=== PATIENT | male | born 1975 | race Caucasian/White ===

== ENCOUNTER 2019-06-15 23:46 | Observation (INO) ==
--- OUTSIDE RECORDS SUMMARY | 2019-06-15 23:49 | External Medical Summary | Continuity of Care Document ---
:1975 Author Name Leonarda Fernandez, Provider Address Unavailable Unavailable , Care Team Providers Name Role Phone Lyndsey Kam PA-C Unavailable [email or web address], Nursing Station [email or web address] CASIE RASHEED Unavailable Unavailable Unavailable Unavailable Unavailable Problems Hemorrhoids, internal (455.0) (K64.8) Bloody stools (578.1) (K92.1) Lower abdominal pain (789.09) (R10.30) Change in bowel habits (787.99) (R19.4) Diarrhea (787.91) (R19.7) Ringworm (110.9) (B35.9) Acid indigestion (536.8) (K30) Sinus congestion (478.19) (R09.81) Chills (780.64) (R68.83) Nausea and vomiting (787.01) (R11.2) Allergies and Adverse Reactions No Known Drug Allergies (Allergy) Medications Lotrimin 1 % CREA Refills: 0 Flonase 50 MCG/ACT SUSP Refills: 0 Suprep Bowel Prep Kit 17.5-3.13-1.6 GM/1 77ML Oral Solution; DILUTE CONTENTS AND USE DIRECTED FOR BOWEL PREP DUNG Kam Start: 26-Oct-2015 Quantity: 1 177 ML Bottle (2 Bot tles) Refills: 0 Procedures History of Appendectomy Status: Complete d History of Shoulder Surgery Status: Comp leted Immunizations Immunizations not documented Family History uncle Family history of colon cancer (V16.0) (Z80.0) Status: Activ e cousin Family history of colon cancer (V16.0) (Z80.0) Status: Activ e Social History - Smoking Status Smoker. current status unknown Plan of Treatment Planned Observations Planned Goals not documented Results No Known Results Results not documented Encounters Appointment; Med ME5, Nursing Station 21-Aug-2018 11:05 Encounter Diagnosis: Problem not documented
[2019-06-16] MEDS ORDERED: NITROGLYCERIN 2% OINTMENT 30GM TUBE EXT STA (00:03)
[2019-06-16] MEDS ORDERED: ASPIRIN CHEW 324 MG PO STA (00:03)
[2019-06-16] MEDS ORDERED: MoRPHine SULFATE 4 MG/ML 1 ML CARP\\VIAL IV STA ×2 (00:03→01:43)
--- NOTE | 2019-06-16 00:11 | Emergency Department Note ---
History of Present Illness General Chief complaint: Cardiac Assessment Stated complaint: HIGH BLOOD PRESSURE Time Seen by Provider: 06/15/19 23:55 History of Present Illness Maximum Pain Intensity: 7 This is a 43-year-old male that presents to the emergency department via private vehicle with complaints of "high blood pressure". The patient notes a history of hypertension, and has had difficulty managing this over the past few days. He notes that his blood pressures been elevated since , and tonight he took 2 tablets of metoprolol noting that this was increased recently. He states that around 7 PM he began with some difficulty with breathing, left arm numbness/tingling and pain in the armpit as well as a headache. His vision was intimately blurry and he felt lightheaded. He felt that his blood pressure was quite elevated. He denies any fevers, chills, recent illness, history of meningitis. He denies any history of GA or PE. He rates the overall discomfort currently as a 7/10. Home Medications Home Medications Medication Instructions Recorded Confirmed Type celecoxib 200 mg PO QPM PRN 06/16/19 06/16/19 History gabapentin 100 mg PO TID 06/16/19 06/16/19 History hydrocodone-acetaminophen 1 tab PO TID PRN 06/16/19 06/16/19 History lorazepam 0.5 mg PO HS PRN 06/16/19 06/16/19 History metoprolol succinate 75 mg PO HS 06/16/19 06/16/19 History sertraline 100 mg PO DAILY 06/16/19 06/16/19 History sumatriptan succinate 50 mg PO UD PRN 06/16/19 06/16/19 History trazodone 50 mg PO HS 06/16/19 06/16/19 History Allergies Allergy/AdvReac Type Severity Reaction Status Date / Time No Known Allergies Allergy Unknown Verified 06/16/19 00:06 Past Med/Surg History Medical History Hypertension Surgical History History of appendectomy History of repair of rotator cuff left Social History Beliefs That Will Affect Care: None Current Living Situation: Spouse and Family Feels Safe at Home: Yes Safety Concerns: Feels Safe At This Time Smoking Status: Current every day smoker Tobacco Type: e-cigarettes ; Do You Dip or Chew Tobacco: No ; Second Hand Exposure: Yes ; Tobacco Cessation Ed ucation Requested by Patient: No Hx Alcohol Use: Yes Alcohol type: hard liquor Hx Substance Use: No Review of Systems A total of 10 systems reviewed and were otherwise negative Physical Exam Vital Signs Vital Signs - 24 hr 06/15/19 23:48 06/16/19 00:00 06/16/19 00:03 Temperature 36.6 C Temperature Source Oral Sepsis Recent Fever Within 48 Hours No Sepsis Action Taken by Nursing No Action Required Pulse Rate 84 Pulse Rate from SpO2 Sensor Respiratory Rate 20 Respiratory Effort / Characteristics Non-Labored Short of Breath Respiratory Depth Normal Normal Blood Pressure 159/100 H Blood Pressure Mean 119 Blood Pressure Position Sitting Pulse Oximetry 96 98 Oxygen Delivery Method Room Air Room Air Room Air Oxygen Flow Rate 06/16/19 00:19 06/16/19 00:45 06/16/19 01:39 Temperature Temperature Source Sepsis Recent Fever Within 48 Hours Sepsis Action Taken by Nursing Pulse Rate 71 68 Pulse Rate from SpO2 Sensor 71 Respiratory Rate 17 20 Respiratory Effort / Characteristics Respiratory Depth Blood Pressure 153/106 H 148/98 H Blood Pressure Mean 121 114 Blood Pressure Position Pulse Oximetry 98 Oxygen Delivery Method Room Air Room Air Oxygen Flow Rate 97 06/16/19 02:00 06/16/19 02:30 Temperature Temperature Source Sepsis Recent Fever Within 48 Hours Sepsis Action Taken by Nursing Pulse Rate 71 68 Pulse Rate from SpO2 Sensor Respiratory Rate 16 16 Respiratory Effort / Characteristics Respiratory Depth Blood Pressure 146/88 H 147/91 H Blood Pressure Mean 107 109 Blood Pressure Position Pulse Oximetry Oxygen Delivery Method Oxygen Flow Rate VITAL SIGNS - Vital signs and nursing notes were reviewed. Stable and afebrile. GENERAL -43-year-old male appearing his stated age who is in no acute distress but appears to be in pain. Communicates well with provider and answers questions appropriately. SKIN - Without rashes. HEAD - NC/AT. EYES - PERRL with EOMI bilaterally. Sclera anicteric. EARS - No deformities of external structures noted on gross examination bilaterally. No pain elicited with palpation of the tragus bilaterally.Tympanic membranes pearly syed without retraction or bulging. No fluid or purulent material visualized behind the TM. Handle of malleus, umbo, cone of light, pars tensa/flaccid all easily visualized. NOSE - Midline and without cyanosis. No epistaxis or purulent drainage noted. Septum midline without deviation or septal hematoma noted. MOUTH/OROPHARYNX - Without perioral cyanosis. Buccal mucosa pink and moist and without leukoplakia. Tongue midline with equal elevation of palate bilaterally. No tonsillar hypertrophy, erythema, or exudates noted. GOod dentition noted. NECK - Neck with FROM. Supple to palpation. NO lymphadenopathy noted. No nuchal rigidity. LUNGS - Chest wall symmetric without accessory muscle use, intercostals retractions, or central cyanosis. Normal vesicular breath sounds CTA B/L. No wheezes, rales, or rhonchi appreciated. CARDIAC - RRR with S1/S2. No murmur, rubs, or gallops appreciated. EXTREMITIES - No clubbing or peripheral cyanosis. No pretibial edema present. +5/5 strength noted in UE/LE bilaterally. NEUROLOGIC - Cranial nerves II through XII grossly intact. Sensory intact to light touch throughout. PSYCH - A&O, and cooperates fully with examiner. Pt is very pleasant and interacts well with examiner. Course Administered Medications Sodium Chloride (1/2 Nss) 1,000 mls @ 40 mls/hr IV .Q24H KEANU Stop: 07/16/19 04:13 Last Admin: 06/16/19 04:39 Dose: 40 mls/hr Documented by: [id number] Morphine Sulfate (Morphine Sulfate) 4 mg IV Q4H PRN PRN Reason: Pain Stop: 06/30/19 04:13 Last Admin: 06/16/19 04:43 Dose: 4 mg Documented by: [id number] Discontinued Medications Aspirin (Aspirin) 324 mg PO NOW STA Stop: 06/16/19 00:04 Last Admin: 06/16/19 00:28 Dose: 324 mg Documented by: [id number] Magnesium Sulfate/Dextrose (Magnesium Sulfate / D5w) 1 gm in 100 mls @ 100 mls/hr IV ONE ONE Stop: 06/16/19 02:45 Last Infusion: 06/16/19 03:34 Dose: 0 mls/hr Documented by: [id number] Admin: 06/16/19 02:30 Dose: 100 mls/hr Documented by: [id number] Morphine Sulfate (Morphine Sulfate) 4 mg IV NOW STA Stop: 06/16/19 00:04 Last Admin: 06/16/19 00:29 Dose: 4 mg Documented by: [id number] Morphine Sulfate (Morphine Sulfate) 4 mg IV NOW STA Stop: 06/16/19 01:44 Last Admin: 06/16/19 02:30 Dose: 4 mg Documented by: [id number] Nitroglycerin (Nitro-Bid 2%) 0.5 inch EXT NOW STA Stop: 06/16/19 00:04 Last Admin: 06/16/19 00:29 Dose: 0.5 inch Documented by: Rajendra Medical Decision Making Laboratory Data Result diagrams: 06/16/19 00:15 06/16/19 00:15 Lab Results 06/16/19 06/16/19 06/16/19 Range/Units 00:15 00:15 00:15 WBC 6.87 (4.8-10.8) K/uL RBC 4.64 L (4.7-6.1) M/uL Hgb 14.8 (14.0-18.0) g/dL Hct 41.9 L (42-52) % MCV 90.3 (80-100) fL MCH 31.9 (25-34) pg MCHC 35.3 (32-36) g/dL RDW Std Deviation 42.5 (36.4-46.3) fL RDW Coeff of Gurinder 13.0 (11.5-14.5) % Plt Count 263 (130-400) K/uL MPV 10.6 H (7.4-10.4) fL Immature Gran % (Auto) 0.1 % Neut % (Auto) 55.3 % Lymph % (Auto) 32.0 % [place] % (Auto) 9.9 % Eos % (Auto) 2.0 % Baso % (Auto) 0.7 % Immature Gran # (Auto) 0.01 (0.00-0.02) K/uL Neut # (Auto) 3.79 (1.4-6.5) K/uL Lymph # (Auto) 2.20 (1.2-3.4) K/uL [place] # (Auto) 0.68 H (0.11-0.59) K/uL Eos # (Auto) 0.14 (0-0.5) K/uL Baso # (Auto) 0.05 (0-0.2) K/uL PT 10.6 (9.0-12.0) Seconds INR 1.0 (0.9-1.1) APTT 26.5 (21.0-31.0) Seconds PTT Ratio 1.0 Sodium 143 (136-145) mmol/L Potassium 4.1 (3.5-5.1) mmol/L Chloride 111 H (98-107) mmol/L Carbon Dioxide 25 (21-32) mmol/L Anion Gap 7.0 (3-11) BUN 15 (7-18) mg/dl Creatinine 1.38 (0.6-1.4) mg/dl Est Cr Clr Drug Dosing 83.4 ml/min Est GFR ( Amer) 72.1 Est GFR (Non-Af Amer) 62.2 BUN/Creatinine Ratio 11.1 (10-20) Glucose 111 H (70-99) mg/dl Calcium 8.7 (8.5-10.1) mg/dl Magnesium 2.2 (1.8-2.4) mg/dl Total Bilirubin 0.2 (0.2-1) mg/dl AST 23 (15-37) U/L ALT 41 (12-78) U/L Alkaline Phosphatase 74 (45-117) U/L Troponin I < 0.015 (0-0.045) ng/ml Total Protein 7.4 (6.4-8.2) gm/dl Albumin 4.0 (3.4-5.0) gm/dl Globulin 3.4 (2.5-4.0) gm/dl Albumin/Globulin Ratio 1.2 (0.9-2) Lipase 133 (73-393) U/L TSH 0.940 (0.300-4.500) uIu/ml Imaging Data Radiologist's Impression: CT HEAD: No intracranial hemorrhage, midline shift or mass effect. No evidence for cortical infarct or significant interval change from examination dated 09/13/2008 Paranasal sinuses and mastoid air cells are well-aerated.. Radiologist: Willem Good MD Study ready at 01:37 and initial results transmitted at 01:59 MDM Narrative Patient was seen and evaluated as above in room A11. Review was performed of nursing notes and vital signs. After obtaining a thorough history and physical examination the above work up was performed. He presents to us today with chest pressure/pain, left arm numbness/tingling as well as intermittent blurred vision and a headache. His blood pressure is elevated upon arrival but not to a point where it is felt he needs emergent IV blood pressure medication. He did have antihypertensive medication prior to arrival that was taking p.o. IV access was established. The above work-up was performed. Bedside EKG reveals normal sinus rhythm, rate of 73 bpm. No evidence of GA on this examination. CBC reveals no concerning leukocytosis, anemia, coagulopathy, or emergent metabolic abnormality. Troponin is negative. Lipase and TSH are within normal limits. A CT scan was obtained of the brain and is as above. A chest x-ray was also obtained and read by myself as negative. Patient was given morphine x2. Benefit versus risk of LP was discussed with the patient and through shared decision making will refrain. It is felt that his discomfort is likely secondary to his elevated blood pressure, and not from infectious or emergent intracranial process. His heart score is 4. I do believe he be better served in the inpatient setting for further evaluation and management of his chest pressure and hypertension. The attending physician discussed the case with the hospitalist. Please refer to further documentation regarding his stay. In the evaluation and treatment of this patient, the following differential diagnoses were considered: GA, ASC, Dysrhythmia, Angina, Mediastinitis, GERD, Esophagitis, PE, Pneumonia, Bronchitis, Costochondritis, Rib Fracture, Zoster, among others. GCS: 15 Impression & Plan Chest pain, Headache, Elevated blood pressure reading Discharge Plan Visit Data *Final* Discharge Date/Time: 06/16/19 03:52 Chief Complaint: Cardiac Assessment Stated Complaint: HIGH BLOOD PRESSURE Other Complaint: Hypertension ED Provider: Yung Heard ED Midlevel Provider: Yung Patricia Discharge Problem: Chest pain, Headache, Elevated blood pressure reading Patient Disposition: Admitted As Inpatient Condition: Good Discharge Instructions Interventions: ED Discharge Assessment Last Done: 06/16/19 03:52
[2019-06-16 00:26] LABS: Basophils # (auto) 0.05 K/uL (0-0.2); Basophils % (auto) 0.7 %; Eosinophils # (auto) 0.14 K/uL (0-0.5); Hematocrit (blood only) 41.9 % (42-52); Hemoglobin 14.8 g/dL (14.0-18.0); Immature Granulocytes # (auto) 0.01 K/uL (0.00-0.02); Immature Granulocytes % (auto) 0.1 %; Mean Corpuscular Hgb Conc 35.3 g/dL (32-36); Mean Corpuscular Volume 90.3 fL (80-100); Mean Platelet Volume 10.6 fL (7.4-10.4); Monocytes # (auto) 0.68 K/uL (0.11-0.59); Monocytes % (auto) 9.9 %; Neutrophils # (auto) 3.79 K/uL (1.4-6.5); Neutrophils % (auto) 55.3 %; Platelet Count 263 K/uL (130-400); RDW Standard Deviation 42.5 fL (36.4-46.3); Red Blood Count 4.64 M/uL (4.7-6.1); White Blood Count 6.87 K/uL (4.8-10.8)
[2019-06-16 00:38] LABS: Partial Thromboplastin Time 26.5 Seconds (21.0-31.0); Prothrombin Time 10.6 Seconds (9.0-12.0)
[2019-06-16 00:44] LABS: Alanine Aminotransferase 41 U/L (12-78); Aspartate Aminotransferase 23 U/L (15-37); BUN Creatinine Ratio 11.1 (10-20); Blood Urea Nitrogen 15 mg/dl (7-18); Calcium 8.7 mg/dl (8.5-10.1); Carbon Dioxide 25 mmol/L (21-32); Chloride 111 mmol/L (98-107); Creatinine Clr Calc Pharmacy 83.4 ml/min; Est GFR (African American) 72.1; Est GFR (Non-African American) 62.2; Glucose 111 mg/dl (70-99); Magnesium 2.2 mg/dl (1.8-2.4); Potassium 4.1 mmol/L (3.5-5.1); Sodium 143 mmol/L (136-145)
[2019-06-16 00:55] LABS: Albumin Globulin Ratio 1.2 (0.9-2); Alkaline Phosphatase 74 U/L (45-117); Bilirubin,Total 0.2 mg/dl (0.2-1); Globulin 3.4 gm/dl (2.5-4.0); Total Protein 7.4 gm/dl (6.4-8.2); Troponin I < 0.015 ng/ml (0-0.045)
[2019-06-16] MEDS ORDERED: MAGNESIUM SULFATE / D5W 1 GM/100 ML BAG IV ONE (01:46)
--- NOTE | 2019-06-16 03:01 | History & Physical Report ---
Date of Service June 16, 2019 Assessment & Plan (1) Chest pain: Rule out ACS Hypertension, elevated the past week Multifactorial : Personal stress, canned soup consumption Rule out sleep disordered breathing History of migraine, symptom frequency at baseline Hyperglycemia rule out DM Past tobacco abuse OBS PCU Exercise stress echo in a.m. if next troponin negative Cardiology eval if next troponin elevated. Aspirin for CAD prevention until ACS ruled out. Monitor BP, add MARVA inhibitor if still uncontrolled Check hemoglobin A1c, lipid profile Outpatient sleep study DVT prophylaxis. Lovenox subcu Full code History of Present Illness Chief Complaint: Chest pain, headache Primary Care Provider: Yoli Boyd History obtained from patient and records. Medical history significant for hypertension, migraine, past tobacco abuse. 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 This week patient blood pressure higher than usual. SBP 180S low at one-point. Admits to some stress at home. Compliant with home medications. Denies NSAID intake other than home celecoxib. Usual migraine headache symptoms. Patient seen at PCPs office yesterday. Toprol-XL increased to 100 mg at night. Patient also counseled to avoid usual canned soup consumption which patient did not realize to have high sodium content. Outpatient sleep study still to be scheduled as per patient. Patient finished dinner last night when he experienced substernal heaviness as if somebody was sitting on his chest with pain going to his left arm. Usual migraine headache going to the back of his neck. Chest pain relieved by nitroglycerin given at the emergency room. 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 Allergies Allergy/AdvReac Type Severity Reaction Status Date / Time No Known Allergies Allergy Unknown Verified 06/16/19 00:06 Home Medications Home Medications Medication Instructions Recorded Confirmed Type celecoxib 200 mg PO QPM PRN 06/16/19 06/16/19 History gabapentin 100 mg PO TID 06/16/19 06/16/19 History hydrocodone-acetaminophen 1 tab PO TID PRN 06/16/19 06/16/19 History lorazepam 0.5 mg PO HS PRN 06/16/19 06/16/19 History metoprolol succinate 75 mg PO HS 06/16/19 06/16/19 History sertraline 100 mg PO DAILY 06/16/19 06/16/19 History sumatriptan succinate 50 mg PO UD PRN 06/16/19 06/16/19 History trazodone 50 mg PO HS 06/16/19 06/16/19 History Past Med/Surg History Medical History Hypertension Surgical History History of appendectomy History of repair of rotator cuff left Social History Beliefs That Will Affect Care: None Current Living Situation: Spouse and Family Feels Safe at Home: Yes Safety Concerns: Feels Safe At This Time Smoking Status: Current every day smoker Tobacco Type: e-cigarettes ; Do You Dip or Chew Tobacco: No ; Second Hand Exposure: Yes ; Tobacco Cessation Education Requested by Patient: No Hx Alcohol Use: Yes Alcohol type: hard liquor Hx Substance Use: No Review of Systems Review of Systems: As per HPI, all 10 systems reviewed, all other ROS negative Physical Exam Physical Exam: GENERAL: Comfortable, obese, pleasant, no respiratory distress SKIN: Normal color, warm HEENT: [place] palpebral conjunctivae, no ptosis, dry buccal mucosa NECK : Supple, short neck, no tenderness CHEST : CTA, no tenderness HEART : RRR, no obvious murmurs ABDOMEN: Some distention, nontender EXTREMITIES : No LE swelling/tenderness, no other conspicuous deformities noted NEUROLOGIC : Coherent, no facial asymmetry, no other gross focality Results & Data Vital Signs (Past 12 Hours) Vital Signs Temp Pulse Resp BP Pulse Ox 06/16/19 02:30 68 16 147/91 H 06/16/19 02:00 71 16 146/88 H 06/16/19 01:39 68 20 148/98 H 06/16/19 00:45 71 17 153/106 H 98 06/16/19 00:03 98 06/15/19 23:48 36.6 C 84 20 159/100 H 96 Laboratory Results Laboratory Results WBC 6.87 K/uL (4.8-10.8) 06/16/19 00:15 RBC 4.64 M/uL (4.7-6.1) L 06/16/19 00:15 Hgb 14.8 g/dL (14.0-18.0) 06/16/19 00:15 Hct 41.9 % (42-52) L 06/16/19 00:15 MCV 90.3 fL (80-100) 06/16/19 00:15 MCH 31.9 pg (25-34) 06/16/19 00:15 MCHC 35.3 g/dL (32-36) 06/16/19 00:15 RDW Std Deviation 42.5 fL (36.4-46.3) 06/16/19 00:15 RDW Coeff of Gurinder 13.0 % (11.5-14.5) 06/16/19 00:15 Plt Count 263 K/uL (130-400) 06/16/19 00:15 MPV 10.6 fL (7.4-10.4) H 06/16/19 00:15 Immature Gran % (Auto) 0.1 % 06/16/19 00:15 Neut % (Auto) 55.3 % 06/16/19 00:15 Lymph % (Auto) 32.0 % 06/16/19 00:15 [place] % (Auto) 9.9 % 06/16/19 00:15 Eos % (Auto) 2.0 % 06/16/19 00:15 Baso % (Auto) 0.7 % 06/16/19 00:15 Immature Gran # (Auto) 0.01 K/uL (0.00-0.02) 06/16/19 00:15 Neut # (Auto) 3.79 K/uL (1.4-6.5) 06/16/19 00:15 Lymph # (Auto) 2.20 K/uL (1.2-3.4) 06/16/19 00:15 [place] # (Auto) 0.68 K/uL (0.11-0.59) H 06/16/19 00:15 Eos # (Auto) 0.14 K/uL (0-0.5) 06/16/19 00:15 Baso # (Auto) 0.05 K/uL (0-0.2) 06/16/19 00:15 PT 10.6 Seconds (9.0-12.0) 06/16/19 00:15 INR 1.0 (0.9-1.1) 06/16/19 00:15 APTT 26.5 Seconds (21.0-31.0) 06/16/19 00:15 PTT Ratio 1.0 06/16/19 00:15 Sodium 143 mmol/L (136-145) 06/16/19 00:15 Potassium 4.1 mmol/L (3.5-5.1) 06/16/19 00:15 Chloride 111 mmol/L (98-107) H 06/16/19 00:15 Carbon Dioxide 25 mmol/L (21-32) 06/16/19 00:15 Anion Gap 7.0 (3-11) 06/16/19 00:15 BUN 15 mg/dl (7-18) 06/16/19 00:15 Creatinine 1.38 mg/dl (0.6-1.4) 06/16/19 00:15 Est Cr Clr Drug Dosing 83.4 ml/min 06/16/19 00:15 Est GFR ( Amer) 72.1 06/16/19 00:15 Est GFR (Non-Af Amer) 62.2 06/16/19 00:15 BUN/Creatinine Ratio 11.1 (10-20) 06/16/19 00:15 Glucose 111 mg/dl (70-99) H 06/16/19 00:15 Calcium 8.7 mg/dl (8.5-10.1) 06/16/19 00:15 Magnesium 2.2 mg/dl (1.8-2.4) 06/16/19 00:15 Total Bilirubin 0.2 mg/dl (0.2-1) 06/16/19 00:15 AST 23 U/L (15-37) 06/16/19 00:15 ALT 41 U/L (12-78) 06/16/19 00:15 Alkaline Phosphatase 74 U/L (45-117) 06/16/19 00:15 Troponin I < 0.015 ng/ml (0-0.045) 06/16/19 00:15 Total Protein 7.4 gm/dl (6.4-8.2) 06/16/19 00:15 Albumin 4.0 gm/dl (3.4-5.0) 06/16/19 00:15 Globulin 3.4 gm/dl (2.5-4.0) 06/16/19 00:15 Albumin/Globulin Ratio 1.2 (0.9-2) 06/16/19 00:15 Lipase 133 U/L (73-393) 06/16/19 00:15 TSH 0.940 uIu/ml (0.300-4.500) 06/16/19 00:[address] head initial read: No intracranial hemorrhage, midline shift or mass-effect. Chest x-ray per my interpretation no infiltrate EKG as per my interpretation :Rate 75, NSR, LAD, LAFB, incomplete RBBB, T wave abnormalities inferior leads
[2019-06-16] MEDS ORDERED: ACETAMINOPHEN 325 MG TAB PO PRN (04:14)
[2019-06-16] MEDS ORDERED: NITROGLYCERIN SL 0.4 MG/TAB TAB SL PRN (04:14)
[2019-06-16] MEDS ORDERED: SODIUM CHLORIDE 0.45 % 1,000 ML IV SCH (04:14)
[2019-06-16] MEDS ORDERED: HYDROCODONE/ACETAMOPHEN 5/325MG TAB PO PRN (04:14)
[2019-06-16] MEDS ORDERED: LORazepam 0.5 MG TAB PO PRN (04:14)
[2019-06-16] MEDS: MoRPHine SULFATE 4 MG/ML 1 ML CARP\\VIAL IV PRN ×2 (04:43→12:55)
[2019-06-16 06:46] LABS: Chol HDL Ratio 4; Cholesterol 158 mg/dl (0-200); HDL Cholesterol 39 mg/dl; LDL Cholesterol Calculated 89 mg/dl; Triglycerides 148 mg/dl (0-150); Troponin I < 0.015 ng/ml (0-0.045); VLDL Cholesterol 30 mg/dl
--- NOTE | 2019-06-16 06:57 | XRay Report ---
XR chest 1V portable CLINICAL HISTORY: 43 years-old Male presenting with chest pain. TECHNIQUE: Portable upright AP view of the chest was obtained. COMPARISON: 01/24/2009. FINDINGS: Cardiomediastinal silhouette normal. No focal opacity. No large effusion or pneumothorax. Osseous str uctures normal. Upper abdomen normal. IMPRESSION: 1. No acute cardiopulmonary disease. Electronically signed by: Krishna Santos M.D. 06/16/2019 6:56 AM
--- NOTE | 2019-06-16 07:00 | CT Scan Report ---
HEAD CT NONCONTRAST CT DOSE: 537.48 mGy.cm HISTORY: htn, vision change, headache TECHNIQUE: Multiaxial CT images of the head were performed without the use of intravenous contrast. A utomated exposure control was utilized for this study. A dose lowering technique was utilized adheri ng to the principles of ALARA. Comparison: Head CT 09/13/2008. Findings: The paranasal sinuses and mastoid air cells are clear. The calvarium and skull base are int act. The ventricles and sulci are within normal limits. There is no mass, hematoma, midline shift, or acute infarct. Impression: No acute intracranial abnormality. Electronically signed by: Taco Mcwilliams M.D. 06/16/2019 6:59 AM
[2019-06-16] MEDS: GABAPENTIN 100 MG CAP PO SCH ×2 (07:42→12:47)
[2019-06-16 08:31] LABS: Estimated Average Glucose 111 mg/dl; Hemoglobin A1C 5.5 % (4.5-5.6)
[2019-06-16] MEDS ORDERED: ENOXAPARIN INJ 40 MG/0.4 ML SYR SQ SCH (09:00)
[2019-06-16] MEDS ORDERED: SERTRALINE HCL 100 MG TABLET PO SCH (09:00)
[2019-06-16] MEDS ORDERED: LOSARTAN POTASSIUM 50 MG TAB PO SCH (10:15)
[2019-06-16] MEDS ORDERED: PERFLUTREN LIPID MICROSPHERE (DEFINITY) IV ONE (10:28)
--- NOTE | 2019-06-16 11:20 | Consultation Report ---
DATE OF CONSULTATION: 06/16/2019 CONSULTATION REQUESTED BY: Dr. Funes. REASON FOR CONSULTATION: Chest pain. HISTORY OF PRESENT ILLNESS: The patient is a very pleasant 43-year-old gentleman who is not known to our Cardiology practice. He presented to [facility] late in the evening of 06/16/2019 with complaints of chest discomfort. The patient states that for the last week or so, he has been dealing with elevated blood pressures at home and was recently seen by his primary care physician, Dr. Boyd, who increased his metoprolol to 100 mg daily. He notes he has not seen any significant improvement with this change; however, on the evening of the , he finished dinner and was in his usual state of health, relaxing afterwards when he suddenly developed chest discomfort. He described the discomfort as a pressure sensation originating from his mid substernal area with radiation across his left precordium and a sharp, stabbing pain down his left shoulder and into his left arm. When this occurred, he walked upstairs to go to the bathroom and he noticed he was a little short of breath with the walk, but he denied any associated diaphoresis, nausea, palpitations, lightheadedness, dizziness or syncope. He also had a migraine headache started about the same time as the chest discomfort. At that time, he became concerned and came into the Emergency Department. Upon arrival, he was significantly hypertensive. He was given nitro paste, morphine, aspirin and magnesium and his symptoms completely resolved after treatment in the ER. He has not had any recurrences overnight and his blood pressures have been in the 140s-150s/100 overnight. The patient denies any previous similar episodes. Upon further questioning, the patient admits he has been eating a lot of canned soup lately not realizing that they are high in salt content. PAST SURGICAL HISTORY: 1. Shoulder surgery. 2. Appendectomy. MEDICAL ILLNESSES: 1. Migraines. 2. Hypertension. FAMILY HISTORY: Denies any premature coronary artery disease or sudden cardiac . SOCIAL HISTORY: The patient is a former smoker, has not smoked cigarettes in a while. He is currently using vape for smoking cessation. Drinks occasional alcohol. Denies any recreational drug use. He is and lives at home with his and 3 children who are in good health. 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 REVIEW OF SYSTEMS: As per HPI, all other review of systems reviewed and negative at this time. ALLERGIES: No known drug allergies. MEDICATIONS AN OUTPATIENT: 1. Metoprolol succinate 100 mg at bedtime. 2. Sertraline daily. 3. Sumatriptan as needed. 4. Gabapentin daily. 5. Celecoxib daily. PHYSICAL EXAMINATION: VITAL SIGNS: Temperature 36.5, pulse 58, respiratory rate 12, blood pressure 128/72. GENERAL: Awake, alert, oriented x3, in no acute distress. HEENT: Normocephalic, atraumatic. Pupils equal, round, reactive to light and accommodation. Extraocular muscles intact. Anicteric sclerae. Moist mucous membranes. NECK: No JVD, no bruit. CARDIOVASCULAR: Regular. No S4. Normal S1 and S2. No S3. No murmurs, rubs or gallops. PULMONARY: Clear to auscultation bilaterally. No rales, rhonchi or wheezing. ABDOMEN: Bowel sounds x4, soft. No rebound, guarding, tenderness. No organomegaly. EXTREMITIES: No clubbing, cyanosis or edema. +2 pedal pulses bilaterally. SKIN: Warm and dry. TEST RESULTS: A 12-lead EKG performed in the Emergency Department independently reviewed at this time shows normal sinus rhythm at 73 beats per minute, normal axis, normal intervals, no signs of ischemia, normal study. LABORATORY STUDIES OF SIGNIFICANCE: Sodium 143, potassium 4.1, BUN 15, creatinine 1.4. Troponin negative x2. Total cholesterol of 158, LDL 89, HDL 39, triglycerides 148. Exercise stress echocardiogram was nonischemic; however, rate related left bundle branch block did occur and resolved 2 minutes into recovery phase. The patient did not have any chest discomfort during the stress test and his blood pressure was significantly elevated. IMPRESSION: 1. Hypertension, uncontrolled. 2. Chest pain likely secondary to hypertensive urgency with a nonischemic exercise stress echocardiogram. 3. Normal cholesterol. 4. Rate related left bundle branch block. RECOMMENDATIONS: It was my pleasure to see the patient in consultation today. From a cardiac standpoint, it is counseled that the most prudent course of action at this point will be to proceed with blood pressure control given the fact that stress test was nonischemic. So to that end, I will start him on losartan 50 mg daily and check a BMP ____ blood pressure check in 1 week. At the same time, we will try and titrate down his metoprolol given his lack of antihypertensive benefit. He will then follow up with Cardiology Clinic in [place] in the next 4-6 weeks for further blood pressure management. He was counseled on the rate related bundle and the likely negative predictor for development of heart disease in the future, but again we will follow him clinically. His cholesterol is well controlled. No statin is necessary. It is okay to discharge the patient to home from a cardiac standpoint.
--- NOTE | 2019-06-16 14:24 | Discharge Summary ---
Date of Service June 16, 2019 Admission HPI Per Admitting Provider History obtained from patient and records. Medical history significant for hypertension, migraine, past tobacco abuse. 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 This week patient blood pressure higher than usual. SBP 180S low at one-point. Admits to some stress at home. Compliant with home medications. Denies NSAID intake other than home celecoxib. Usual migraine headache symptoms. Patient seen at PCPs office yesterday. Toprol-XL increased to 100 mg at night. Patient also counseled to avoid usual canned soup consumption which patient did not realize to have high sodium content. Outpatient sleep study still to be scheduled as per patient. Patient finished dinner last night when he experienced substernal heaviness as if somebody was sitting on his chest with pain going to his left arm. Usual mi graine headache going to the back of his neck. Chest pain relieved by nitroglycerin given at the emergency room. 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 Exam Per Admitting Provider GENERAL: Comfortable, obese, pleasant, no respiratory distress SKIN: Normal color, warm HEENT: [employer] palpebral conjunctivae, no ptosis, dry buccal mucosa NECK : Supple, short neck, no tenderness CHEST : CTA, no tenderness HEART : RRR, no obvious murmurs ABDOMEN: Some distention, nontender EXTREMITIES : No LE swelling/tenderness, no other conspicuous deformities noted NEUROLOGIC : Coherent, no facial asymmetry, no other gross focality Principal Diagnosis Chest pain 2/2 uncontrolled blood pressure HTN Discharge Data Allergies Allergy/AdvReac Type Severity Reaction Status Date / Time No Known Allergies Allergy Unknown Verified 06/16/19 00:06 Consultations 06/16/19 02:13 ED Decision to Admit Stat 06/16/19 07:35 Consult Cardiology Routine Ordered Studies 06/16/19 00:03 CT head/brain wo con Urgent Hospital Course (1) Chest pain: (2) Hypertension: 43-year-old man with a history of hypertension managed with Toprol-XL presented with chest discomfort to the ER. He was found to have an elevated blood pressure in the 150s over 100s. He reported dealing with elevated blood pressures at home and had been recently seen by his primary care physician who increased his metoprolol to 100 mg daily. He did not see any improvement with the change and after having some chest pain, presented to the ER out of concern. Serial troponins were negative overnight and an EKG revealed a rate related left bundle branch block. He was admitted to the hospitalist service and cardiology was consulted. The following morning he underwent a treadmill stress test and exercised for approximately 11 minutes. The stress test was negative for ischemia and he was sent home in stable condition with close primary care follow-up and cardiology follow-up recommended. At time of discharge his Toprol-XL was reduced to 50 mg daily and losartan 50 mg daily was added. A repeat basic metabolic panel and blood pressure check is recommended in 1 to 2 weeks. The patient is recommended to follow-up in the cardiology clinic in [place] in the next 4 to 6 weeks for further blood pressure management. At time of discharge a [id number] examination was performed revealing a hemodynamically stable and afebrile patient who was asymptomatic. He was mentating and ambulating at baseline and tolerating p.o. Physical exam was unremarkable. Total Time Total Time Spent Total Time Spent (In Minutes): 60 Total Time Includes: Examination of the Patient, Discharge Planning, Medication Reconciliation, Communication With Other Providers and Other (arranged follow-up with PCP) Discharge Plan Discharge Items Patient Disposition: Home - Self-Care Reason For Visit: HIGH BLOOD PRESSURE Discharge Diagnosis: Hypertension, uncontrolled Condition: Good Discharge Goals: Decrease discomfort Activity: Resume your previous activity Non-emergency contact: Primary Care Provider and Pipe [employer] Call non-emergency contact if: you have any medication questions, your symptoms worsen, your pain is not controlled, your pain is worsening, your pain is unusual for you, your pain is concerning for you and you have a fever Follow-up/Referrals: Yoli Boyd [Primary Care Provider] - Diet: Low Sodium (2gm) Addtl Provider Instructions: Pkease take all medications as instructed on discharge list below. You are being titrated off your METOPROLOL, and the current dose is now half of what you came in on. You are also being given a different blood pressure medication. This will require some non-fasting blood work in two weeks which can be ordered by your primary care physician. You have the following appointment: 06/23/2019 11:00 AM Anabela Rodriguez MD Internal Medicine [facility] Please call to schedule a follow-up with the [facility] Cardiology office in [place] in 4-6 weeks for further management of your blood pressure medications. It was a pleasure taking care of you! Please call if you have any questions or problems. You can reach a [facility] hospitalist on duty at [facility] 24 hours a day by calling [phone]. Take care of yourself. Crissy Funes, DO [facility] Hospitalist Prescriptions: New losartan 50 mg Tablet 50 mg PO QAM Qty: 30 RF: 1 metoprolol succinate 50 mg Tablet Extended Release 24 Hr 50 mg PO DAILY Qty: 30 RF: 1 Continued trazodone 50 mg tablet 50 mg PO HS RF: 0 sumatriptan succinate 50 mg tablet 50 mg PO UD PRN (Reason: Migraine Headache) RF: 0 celecoxib 200 mg capsule 200 mg PO QPM PRN (Reason: joint pain) RF: 0 hydrocodone-acetaminophen 5-325 mg tablet 1 tab PO TID PRN (Reason: Pain) RF: 0 lorazepam 0.5 mg tablet 0.5 mg PO HS PRN (Reason: Anxiety) RF: 0 gabapentin 100 mg capsule 100 mg PO TID RF: 0 sertraline 100 mg tablet 100 mg PO DAILY RF: 0 Discontinued metoprolol succinate 50 mg tablet extended release 24 hr 75 mg PO HS RF: 0 Stand-Alone Forms: [facility] Discharge Orders: Discharge Order (Routine); Ordered 06/16/19 Ordered By: Crissy Funes Admission Data Admit Date/Time: 06/16/19 03:03 Attending Provider: Crissy Funes Admit Provider: Wing Higginbotham Primary Care Provider: Yoli Boyd Other Providers: Wing Higginbotham ; Manoj Darby Service: Telemetry
[2019-06-16] MEDS ORDERED: TRAZODONE HCL 50 MG TAB PO SCH (21:00)
[2019-06-16] MEDS ORDERED: METOPROLOL SUCC 50MG EXT REL TAB PO SCH (21:00)
[2019-06-17] MEDS ORDERED: METOPROLOL SUCC 50MG EXT REL TAB PO SCH (09:00)
[2019-06-17] MEDS ORDERED: ASPIRIN 81 MG ECTAB PO SCH (09:00)
== END 2019-06-16 14:44 | disposition home or self-care (01) ==
LOC: ED 23:46 → 2S 23:46

== ENCOUNTER 2024-10-14 09:03 | Observation (INO) ==
--- NOTE | 2024-09-09 16:01 | PAT Medication Instructions ---
Medication Instructions Date of Service September 09, 2024 Home Medications Medication Instructions Recorded losartan 50 mg tablet 50 mg PO QAM #30 tabs 06/16/19 tramadol 50 mg tablet 50 mg PO BID PRN pain #11 tabs 08/02/24 losartan 50 mg tablet 50 mg PO QAM sertraline 100 mg tablet 100 mg PO QPM sumatriptan succinate 50 mg tablet 50 mg PO UD PRN Migraine Headache ergocalciferol (vitamin D2) 1,250 mcg (50,000 unit) capsule (Vitamin D2) 1,250 mcg PO WK minocycline 100 mg capsule 100 mg PO BID tramadol 50 mg tablet 50 mg PO BID PRN pain cyclobenzaprine 5 mg tablet 5 - 10 mg PO Q8H PRN gabapentin 100 mg capsule 100 mg PO TID hydrocodone 5 mg-acetaminophen 500 mg tablet 1 tab PO Q6H PRN Continue as directed ergocalciferol (vitamin D2) 1,250 mcg (50,000 unit) capsule (Vitamin D2) 1,250 mcg PO WK (just do NOT take on morning of surgery) minocycline 100 mg capsule 100 mg PO BID DO NOT take the morning of surgery losartan 50 mg tablet 50 mg PO QAM Take morning of surgery With a small sip of water, OTHERWISE NOTHING TO EAT OR DRINK AFTER MIDNIGHT: sumatriptan succinate 50 mg tablet 50 mg PO UD PRN Migraine Headache (if needed) tramadol 50 mg tablet 50 mg PO BID PRN pain (if needed) cyclobenzaprine 5 mg tablet 5 - 10 mg PO Q8H PRN (if needed) gabapentin 100 mg capsule 100 mg PO TID hydrocodone 5 mg-acetaminophen 500 mg tablet 1 tab PO Q6H PRN (if needed) Take evening before surgery sertraline 100 mg tablet 100 mg PO QPM sumatriptan succinate 50 mg tablet 50 mg PO UD PRN Migraine Headache (if needed) tramadol 50 mg tablet 50 mg PO BID PRN pain (if needed) cyclobenzaprine 5 mg tablet 5 - 10 mg PO Q8H PRN (if needed) gabapentin 100 mg capsule 100 mg PO TID hydrocodone 5 mg-acetaminophen 500 mg tablet 1 tab PO Q6H PRN (if needed) Other Notes If you have any questions please call us at [phone] or [phone] or [phone] or [phone]
--- NOTE | 2024-09-16 12:16 | Anesthesiology Consultation ---
Date of Service September 16, 2024 Assessment & Plan (1) Encounter for pre-operative examination: - Infectious disease screening: Per assessment on 09/16/24- No known recent infectious disease contacts or current infectious disease symptoms. - Outpatient joint assessment: Pt currently scheduled for inpatient pathway. If surgeon requests review for outpatient joint pathway, patient is an acceptable candidate for outpatient joint program from anesthesia standpoint pending surgeon's office assessment that patient is motivated, has good support and completes Same Day Joint Program preop requirements. Chart Review Chart Review: Acceptable Risk for Surgery and Patient seen in Pre Admission Testing Teaching & Discussion Pre-Anesthesia Teaching/Discussion Notes: Instructed NPO after midnight before surgery,except medications with 15 cc of water. Medication instructions provided according to the PAT guidelines. History Surgery Operation Date: 10/14/24 07:15 Proposed Procedures p Right Total Shoulder Arthroplasty - Ismael Myers MD Height/Weight Height: 5 ft 11 in Weight: 91.4 kg Allergies Allergy/AdvReac Type Severity Reaction Status Date / Time No Known Allergies Allergy Unknown Verified 09/09/24 13:14 Medications Home Medications Medication Instructions Recorded Confirmed Last Taken losartan 50 mg tablet 50 mg PO QAM #30 tabs 06/16/19 09/09/24 08/01/24 sertraline 100 mg tablet 100 mg PO QPM 06/16/19 09/09/24 08/01/24 sumatriptan succinate 50 mg tablet 50 mg PO UD PRN Migraine Headache 06/16/19 09/09/24 Unknown ergocalciferol (vitamin D2) 1,250 1,250 mcg PO WK 08/02/24 09/09/24 07/27/24 mcg (50,000 unit) capsule (Vitamin D2) minocycline 100 mg capsule 100 mg PO BID 08/02/24 09/09/24 08/02/24 tramadol 50 mg tablet 50 mg PO BID PRN pain #11 tabs 08/02/24 09/09/24 Unknown cyclobenzaprine 5 mg tablet 5 - 10 mg PO Q8H PRN prn 09/09/24 09/09/24 Unknown gabapentin 100 mg capsule 100 mg PO TID 09/09/24 09/09/24 Unknown hydrocodone 5 mg-acetaminophen 500 1 tab PO Q6H PRN prn 09/09/24 09/09/24 Unknown mg tablet Past Medical History Medical History Degenerative disc disease, lumbar Depression History of left bundle branch block (LBBB) Rate-related LBBB noted on 2019 Exercise stress echo Hypertension Migraines Exercise / Class Metabolic Activity II 4-5 Yardwork/Stairs/Walk up hill Past Surgical History Surgical History History of appendectomy History of repair of rotator cuff left Past Anesthesia History No Hx of Anesthesia Complications and No Family Hx of Anesthesia Complications History of PONV No Hx of PONV and Hx of Motion Sickness (Occasional) Social History Smoking Status: Current every day smoker tobacco type: e-cigarettes (Vape, daily) Do You Dip or Chew Tobacco: No Hx Alcohol Use: Yes Alcohol type: beer alcohol intake frequency: a few times a week Hx Substance Use: No substance use type: does not use Review of Systems Patient had chest pain episode 07/2024 s/p [facility] ER evaluation- determined to be "noncardiac." Chest pain has resolved. No subsequent/current chest pain complaints/issues. Patient denies shortness of breath, dyspnea on exertion, fever, chills, cough, wheezing, palpitations. Physical Exam Vital Signs BP 131/84 P 90 TEMP 98.2 SP02 97%RA RESP 16 Physical Full cervical extension range of motion. Full TMJ range of motion. TMD > 3.5 finger breaths Mallampati Score I Dentition: missing sides, possible cap/crown Lungs: clear throughout to auscultation Cardiac: regular rate and rhythm, no murmurs noted Spine: normal Carotid arteries: negative bruit Extremities: no LE edema Lab Results Anesthesia Preop Results Results Anesthesia Widget: WBC 5.93 K/ul (4.8-10.8) 09/16/24 Hgb 15.9 g/dl (14.0-18.0) 09/16/24 Hct 46.0 % (42.0-52.0) 09/16/24 Plt 263 K/uL (130-400) 09/16/24 Na 140 mmol/L (136-145) 09/16/24 K 4.1 mmol/L (3.5-5.1) 09/16/24 Cl 107 mmol/L (98-107) 09/16/24 CO2 24 mmol/L (21-32) 09/16/24 BUN 18 mg/dl (6-23) 09/16/24 Creat 1.01 mg/dl (0.6-1.4) 09/16/24 Glucose Level 110 mg/dl (70-99(Fasting)) H 09/16/24 PT 11.1 Seconds (9.0-12.0) 09/16/24 PTT 29 Seconds (21-31) 09/16/24 INR 1.0 (0.9-1.1) 09/16/24 Urine Color Yellow 09/16/24 Urine Appearance Turbid (Clear) A 09/16/24 Urine pH 5.5 (4.5-7.5) 09/16/24 Urine Specific [place] 1.032 (1.000-1.030) H 09/16/24 Urine Protein Negative (Negative) 09/16/24 Urine Glucose (UA) Negative (Negative) 09/16/24 Urine Ketones Trace (Negative) H 09/16/24 Urine Blood Negative (Negative) 09/16/24 Urine Nitrite Negative (Negative) 09/16/24 Urine Bilirubin Negative (Negative) 09/16/24 Urine Urobilinogen Negative (Negative) 09/16/24 Urine Leukocyte Esterase Trace (Negative) H 09/16/24 Urine WBC (Auto) 0-5 /hpf (0-5) 09/16/24 Urine RBC (Auto) 3-5 /hpf (0-2) H 09/16/24 Urine Hyaline Casts (Auto) 0-2 /lpf (0-2) 09/16/24 Urine Epithelial Cells (Auto) 0-2 /hpf (0-2) 09/16/24 Urine Bacteria (Auto) None Seen (None Seen) 09/16/24 Urine Amorphous Sediment Present (None Prsent) A 09/16/24 Blood Type O Positive 09/16/24 Antibody Screen NEGATIVE 09/16/24 Testing Electrocardiogram Date: 09/16/24 NSR with sinus arrhythmia at 69bpm. "Normal ECG" Chest X-Ray Date: 08/02/24 FINDINGS: Lung volumes are normal. Lungs are clear. There is no pneumothorax or pleural effusion. Cardiac size is normal. Mediastinal contours are normal. There is no evidence for pulmonary edema. IMPRESSION: No acute cardiopulmonary findings. Stress Test Date: 06/16/19 Type: exercise Nonischemic exercise stress echocardiogram. A rate related LBBB. At 9 minutes and 45 seconds with HR of 144 bpm, resolved 2 minutes into recovery. No other inducible arrhythmias. 12.8 METS. At rest, normal LV chamber size with mild concentric LVH. LVEF 60 to 65%. No regional wall motion abnormality. Aortic root top normal diameter at 4 cm, normal sized ascending aorta at 3.4 cm. Mild AR. Other Testing Abdomen/Pelvis CTA Date: 08/02/24 FINDINGS: The caliber of the abdominal aorta is normal. There is no abdominal aortic dissection or aneurysm. Branch vessels are patent. No plaque is identified. Arterial phase images of the liver, spleen, adrenal glands and pancreas are unremarkable. There is no hydronephrosis. A few small bilateral renal calculi measure up to 3 mm. There are no ureteral calculi. Caliber and wall thickness of small and large bowel are normal. There is no lymphadenopathy. There are no fluid collections. There are fat-containing bilateral inguinal hernias. No acute fractures within the visualized skeletal structures are present. Bladder is mildly distended. No peripancreatic or pericholecystic infiltration. IMPRESSION: Normal caliber abdominal aorta. No abdominal aortic dissection or aneurysm. Small bilateral renal calculi. No ureteral calculi. No hydronephrosis. Mildly distended bladder. No bowel obstruction. No bowel wall thickening. Chest CTA Date: 08/02/24 FINDINGS: The caliber of the thoracic aorta is normal. No acute intramural hematoma or thoracic aortic dissection. Size of the heart is normal. There is no pericardial effusion. No pulmonary emboli are identified. There is no thoracic lymphadenopathy. No pneumothorax or pleural effusion is present. There is no consolidation to suggest pneumonia. A tiny 4 mm left upper lobe nodule on image 121 is likely benign. IMPRESSION: No thoracic aortic dissection. No acute intrathoracic findings. Tiny 4 mm upper lobe nodular density. This is likely benign. A chest CT in 6 months to ensure stability/resolution is recommended.
--- NOTE | 2024-10-11 12:32 | History & Physical Report ---
Date of Service October 11, 2024 Assessment & Plan (1) Osteoarthritis of right glenohumeral joint: Plan: End-stage right glenohumeral osteoarthritis. Plan is to proceed with a stemless total shoulder replacement using OVO motion Arthrosurface total shoulder replacement with inlay glenoid component. Likely remove loose body and biceps sheath possibly reinforce biceps tendon with tenodesis to pectoralis tendon. (2) Biceps rupture, proximal: Encounter type: sequela Laterality: right Qualified Code(s): S46.211S - Strain of muscle, fascia and tendon of other parts of biceps, right arm, sequela History of Present Illness Chief Complaint: Chronic right shoulder pain Primary Care Provider: Sergey Elliott PA-C 49-year-old male history of ruptured biceps and osteoarthritis shoulder with right shoulder pain failed conservative management. Patient denies headaches, sweats, fevers, chills, double vision, blurred vision, cough, sore throat, dysphagia, chest pain, sob, wheezing, n/v/d/c, numbness, tingling, fatigue, urinary symptoms. ROS positive for hypertension depression migraine headaches. Allergies Allergy/AdvReac Type Severity Reaction Status Date / Time No Known Allergies Allergy Unknown Verified 09/09/24 13:14 Home Medications Medication Instructions Recorded Confirmed Type losartan 50 mg tablet 50 mg PO QAM #30 tabs 06/16/19 09/09/24 Rx sertraline 100 mg tablet 100 mg PO QPM 06/16/19 09/09/24 History sumatriptan succinate 50 mg tablet 50 mg PO UD PRN Migraine Headache 06/16/19 09/09/24 History ergocalciferol (vitamin D2) 1,250 1,250 mcg PO WK 08/02/24 09/09/24 History mcg (50,000 unit) capsule (Vitamin D2) minocycline 100 mg capsule 100 mg PO BID 08/02/24 09/09/24 History tramadol 50 mg tablet 50 mg PO BID PRN pain #11 tabs 08/02/24 09/09/24 Rx cyclobenzaprine 5 mg tablet 5 - 10 mg PO Q8H PRN prn 09/09/24 09/09/24 History gabapentin 100 mg capsule 100 mg PO TID 09/09/24 09/09/24 History hydrocodone 5 mg-acetaminophen 500 1 tab PO Q6H PRN prn 09/09/24 09/09/24 History mg tablet Past Med/Surg History Problem List (Updated 10/11/24 @ 12:46 by Ismael Myers MD) Biceps rupture, proximal Osteoarthritis of right glenohumeral joint Encounter for pre-operative examination Medical History History of left bundle branch block (LBBB) Rate-related LBBB noted on 2019 Exercise stress echo Depression Degenerative disc disease, lumbar Migraines Hypertension Surgical History History of appendectomy History of repair of rotator cuff left Social History Smoking Status: Current every day smoker Tobacco Type: E-cigarettes / Vaping Second Hand Exposure: No; Do You Dip or Chew Tobacco: No; Hx Alcohol Use: Yes Alcohol type: beer Hx Substance Use: No Preferred Language: Irish Chainer Required: No Beliefs That Will Affect Care: None Current Living Situation: Spouse Feels Safe at Home: Yes Assistive Devices: None Review of Systems All systems reviewed & are unremarkable except as noted in HPI & below Physical Exam Constitutional: WD/WN, vitals as above Respiratory: normal respiratory effort; no respiratory distress Cardiovascular: Rate/Rhythm: regular rate and regular rhythm Musculoskeletal: Right shoulder with glenohumeral crepitation with range of motion. Active flexion 140 degrees passive flexion 160 degrees external and internal rotation 70 degrees. Generalized mild decreased strength in shoulder related to pain. Neurocirculatory exam intact. Skin: no rashes, warm and dry Neurologic: normal touch/pain/proprioception Psychiatric: A+Ox3, euthymic affect Results & Data Diagnostic Findings X-rays demonstrate grade 4 osteoarthritis glenohumeral joint with typical inferior humeral osteophyte and concentric wear pattern. MRI demonstrates intact rotator cuff with proximal biceps rupture loose body in biceps tendon sheath.
[~2024-10-14 09:03] MED LIST: BUPIVACAINE 0.5 % 5 MG/1 ML PF 10ML VIAL ONE
[2024-10-14] MEDS ORDERED: PROPOFOL IV EMULSION 10 MG/ML 20 ML VIAL IV ONE ×2 (09:53→14:00)
[2024-10-14] MEDS ORDERED: LIDOCAINE 2% 2 ML VIAL/AMP(20MG/ML) INFIL ONE ×2 (09:53→12:57)
[2024-10-14] MEDS ORDERED: ROCURONIUM BROMIDE 10 MG/ML 5 ML VIAL IV ONE ×3 (09:53→14:53)
[2024-10-14] MEDS ORDERED: fentaNYL citrate PF 100 MCG/2 ML VIAL ONE (09:54)
[2024-10-14] MEDS ORDERED: ONDANSETRON INJ 2 MG/ML 2 ML VIAL ONE (09:54)
[2024-10-14] MEDS ORDERED: MIDAZOLAM HCL 1 MG/ML 2ML VIAL ONE (09:54)
[2024-10-14] MEDS: METOCLOPRAMIDE HCL 10 MG TABLET PO SCH (10:31)
[2024-10-14] MEDS: ACETAMINOPHEN 500 MG TAB PO SCH ×2 (10:31→22:08)
[2024-10-14] MEDS: dexAMETHasone**PF** 10 MG/ML VIAL IV SCH (10:31)
[2024-10-14] MEDS: GABAPENTIN 900 MG DOSE PO SCH (10:31)
[2024-10-14] MEDS: FAMOTIDINE 20 MG TAB PO SCH (10:31)
[2024-10-14] MEDS: CeleBREX 200 MG CAP PO SCH (10:31)
--- NOTE | 2024-10-14 10:46 | History & Physical Bridge Note ---
Date of Service October 14, 2024 History & Physical Bridge Note I have examined the patient, reviewed the History & Physical and in the interval since the performance of the History & Physical I have noted the following changes of clinical significance: no changes noted
[2024-10-14] MEDS ORDERED: PROMETHAZINE HCL 6.25 MG in SODIUM CHLORIDE 0.9% 50 ML IV PRN (11:26)
[2024-10-14] MEDS ORDERED: ePHEDrine sulfate 50 MG/ML AMP IV PRN (11:26)
[2024-10-14] MEDS ORDERED: ATROPINE SULFATE 0.1 MG/ML 10ML SYR IV PRN (11:26)
[2024-10-14] MEDS ORDERED: DROPERIDOL 5 MG/2 ML VIAL IV PRN (11:26)
[2024-10-14] MEDS: TRANEXAMIC ACID 1,000 MG **IV Pre-op IV SCH (12:59)
[2024-10-14] MEDS: SODIUM CHLORIDE 0.9% 1,000 ML IV SCH (12:59)
[2024-10-14] MEDS: LR 60ML/HR IV SCH (13:29)
[2024-10-14] MEDS: ceFAZolin 2000MG 2,000 MG/15 ML SYR IV SCH ×2 (13:30→22:08)
[2024-10-14] MEDS ORDERED: PHENYLEPHRINE 100MCG/ML 5ML SYR ONE (14:00)
[2024-10-14] MEDS: EpINEphrine HCL INJ 1 MG/ML 1ML SYRINGE IR ONE (14:22)
[2024-10-14] MEDS: TRANEXAMIC ACID 1,000 MG **IV Intra-op IV SCH (15:58)
[2024-10-14] MEDS ORDERED: SUGAMMADEX SODIUM 200 MG/2 ML VIAL IV ONE (16:02)
--- NOTE | 2024-10-14 16:58 | Operative Report ---
Post Operative Report Pre & Post Diagnosis Operation Date: 10/14/24 11:45 Pre-Op Diagnosis: Right Shoulder glenohumeral osteoarthritis, proximal biceps rupture Post-Op Diagnosis: Right Shoulder glenohumeral osteoarthritis, proximal biceps rupture, type III the superior glenoid labral tear. I identified the patient and participated in the time-out.: Yes Procedure Operation Date: 10/14/24 11:45 Actual Procedures p Right Total Shoulder Arthroplasty, stemless shoulder replacement with inlay glenoid, debridement glenoid labral tear, biceps tenodesis. Excision loose body biceps tendon sheath.- Ismael Myers MD Surgeon Ismael Myers MD Medical Scientist Carlito SERRANO Estimated Blood Loss 200 Findings Consistent with Post-Op Diagnosis Specimens None Drains 2 Hemovac Anesthesia Type General Regional Complications none Disposition Disposition: Recovery Room Indications 49-year-old male with chronic right shoulder pain. He has a subacute ruptured biceps tendon and developed some retraction of the biceps. Main issue is shoulder pain. MRI demonstrates intact rotator cuff but advanced osteoarthritis glenohumeral joint with significant subchondral cystic changes in the glenoid and grade 4 osteoarthritis glenohumeral joint. Description of Procedure Patient was placed placed under regional block and general anesthetic. The right upper extremity had a towel roll placed on the medial border of the scapula and translated to the side of the bed so it could be manipulated off of the bed as necessary. A foam headrest was placed and protective eyewear was placed. Lower extremities were well-padded. Patient was positioned in a beach chair position approximately 40 degrees. Shoulder exam demonstrated 170 degrees of forward flexion and abduction and 90 degrees of external rotation and internal rotation. The right upper extremity was prepped and draped in sterile fashion. A deltopectoral approach was performed with a longitudinal incision in a deltopectoral interval. The skin was incised sharply and the subcutaneous flaps were elevated. The cephalic vein was smaller than typical and somewhat friable. It was dissected out and retracted laterally with the deltoid. The clavipectoral fascia was divided at the lateral margin of the conjoined tendon and extended up to the CA ligament. A self-retaining retractor was placed. Biceps findings demonstrated the biceps tendon was noted in the subpectoral region. Proximal to that it had ruptured. The biceps stump was dissected out and the scarred tenosynovium was resected from around the biceps. A loose body was removed from the biceps tendon sheath.. Biceps tendon was tenodesed to the pectoralis with whipstitch and [id number] #2 FiberWire sutures. The circumflex vessels were tied off with silk ties and divided laterally. The subscapularis muscle fibers were at the level of the circumflex vessels dissection was taken down to the capsule and a Kitner elevator was used to release the inferior fibers of the capsule protecting the axillary nerve inferiorly. A blunt Hohmann retractors were placed between the inferior located axillary nerve and the capsule. This was verified with a tug test. The rotator was opened up and extended down to the glenoid. The subscapularis was taken down with a transtendinous incision leaving a cuff of tissue for repair on the lesser tuberosity. The incision was carried through the subscapularis to the capsule and then subperiosteally along the inferior capsule exposing the inferior humeral osteophytes. These demonstrated moderate-sized osteophytes which were removed with a large chisel and a rongeur. The humeral head findings demonstrated articular thinning and areas of grade 4 articular wear geographically around the head with some areas of intact cartilage between those areas.. After the osteophytes were resected humeral head was retracted posterior to the glenoid with a Fukuda retractor. The glenoid findings demonstrated lower 50% of the glenoid was down to bone with cystic changes and erosive changes. The upper articular surface of the glenoid still had intact articular cartilage. There was a type III SLAP tear with absent biceps tendon but a bucket-handle type superior labrum tear.. The labrum tear loose fragment was resected. I preserve the remainder of the labrum circumferentially. I did not do any capsular releases. Patient did have some generalized laxity and I did not want to do any releases to prevent instability. The humeral head was reexposed with retractors and humeral head was sized for a size 56 x 52 Arthrosurface OVO motion humeral head. The central guidepin was placed. The threaded stop for the reamer was drilled into the head. This was placed at the appropriate depth. The head reamer was used. All debris was irrigated out of the joint. The flat head resection reamer was used. The remaining section of bone was removed with a saw. The humerus was then retracted posteriorly again with the Fukuda retractor posterior to the glenoid. The guide for the glenoid component was placed and the guide pin was advanced to the appropriate depth. Glenoid reamers were utilized. The depth gauge verified the depth of the reaming. The drill hole for the central post was placed. Trial component was placed at satisfactory position and depth. Trial was removed and the glenoid reamed area was prepared for cementing with several drill holes placed around the reamed area to accept cement. Multiple subchondral cysts were curetted out removing all the cyst material. After further irrigation the reamed area was packed with epinephrine soaked tampon sponges. The Palacos cement was vacuum mixed. The cement was injected into the cyst cavities and into the glenoid reamed area and compressed with a finger compression device. More cement was placed on the back of the single articular glenoid polyethylene 19 mm x 20 mm articular implant forehead size 58-54 glenoid component and it was inserted into the reamed area in appropriate position with the suction device that held onto the component. When the component was appropriate seating position the suction was removed as well as a suction device and direct pressure was placed on of the component and excess cement was cleared and the component was held in position until the cement fully cured. Attention was taken back to the humerus. The humeral head guide was placed onto the humeral head in the appropriate position. The guidepin was readvanced in position. Due to the hard bone we used a tap first then the 12 mm tapered post was inserted to appropriate depth with excellent fixation. At this time 3 drill holes were made along the lateral surface of the lesser tuberosity spanning the distance of the subscapularis attachment and 3 transosseous #5 FiberWire sutures were placed for repair of the subscapularis. After copious irrigation the Newman taper of the tapered post was dried and then the humeral component size 56 x 52 mm ovo motion humeral head was impacted onto the taper post with stable fixation. This was assessed with a Cedeno elevator to be stable. This was then reduced to the glenoid and range of motion and stability was assessed. After copious irrigation the subscapularis was repaired with the #5 FiberWire sutures using Jarad-Lawrence suture technique and lateral row soft tissue repair with #2 FiberWire [id number] sutures and the rotator interval was closed in maximal external rotation with interrupted #2 FiberWire sutures. The cephalic vein which was friable and had some bleeding had to be tied off with silk ties. The pectoralis was repaired with a rrbkrk-lh-[id number] #2 FiberWire sutures passing suture to the biceps tendon to reinforce the tenodesis. Range of motion was assessed demonstrating 170 degrees forward flexion 110 degrees abduction 75 degrees external rotation without any tension on subscapularis repair. The wound was copiously irrigated and 2 Hemovac drains were placed brought out laterally. The deltopectoral interval was repaired with [id number] #1 Vicryl sutures and the subcutaneous tissues were closed into 2-0 Vicryl sutures and skin closed with alessia and Silverlon sterile dressing was applied and a shoulder immobilizer. The patient tolerated the procedure well. Carlito SERRANO my physician assistant inventory manager assisted in the procedure with arm positioning soft tissue retraction instrument management suture management and performed the subcutaneous and skin closure dressings and shoulder immobilizer application and will participate in the postop care the patient. I attest to the content of the Intraoperative Record and any orders documented therein. Any exceptions are noted below.
[2024-10-14] MEDS: HYDROmorphone INJ 2 MG/ML SYR/VIAL IV PRN (17:05)
[2024-10-14] MEDS: HYDROmorphone INJ 0.5 MG/0.5 ML SYR IV PRN (17:25)
--- NOTE | 2024-10-14 17:44 | XRay Report ---
EXAM: Radiographs of the Right Shoulder Complete 2 or More Views INDICATION: Shoulder surgery. TECHNIQUE: Two or more views of the right shoulder. COMPARISON: No relevant prior studies available. FINDINGS: Bones/joints: Normally located metallic device replaced in the humeral head. No dislocation or fracture. Visualized right ribs intact. Soft tissues: Expected postoperative gas and swelling in the operative bed. Drains present. Lungs and pleural spaces: Visualized right lung clear. IMPRESSION: Satisfactory appearance of right humeral resurface. ACT 112: Negative or not required by law. Electronically signed by Rachel Bautista 10-14-2024 5:43 PM
[2024-10-14] MEDS ORDERED: ALUMINUM/MAGNESIUM SUSP 30 ML UDC PO PRN (18:24)
[2024-10-14] MEDS ORDERED: TAMSULOSIN HCL 0.4 MG CAP PO PRN (18:24)
[2024-10-14] MEDS ORDERED: SUMAtriptan succinate 50 MG TAB PO PRN (18:24)
[2024-10-14] MEDS ORDERED: diphenhydrAMINE Capsule 25 MG CAP PO PRN (18:24)
[2024-10-14] MEDS ORDERED: NALOXONE HCL 0.4 MG/1 ML VIAL/CARP IV PRN (18:24)
[2024-10-14] MEDS ORDERED: MAGNESIUM HYDROXIDE SUSP 30 ML UDC PO PRN (18:24)
[2024-10-14] MEDS ORDERED: HYDROmorphone INJ 0.5 MG/0.5 ML SYR IV PRN (18:24)
[2024-10-14] MEDS ORDERED: ONDANSETRON INJ 2 MG/ML 2 ML VIAL IV PRN (18:24)
[2024-10-14] MEDS ORDERED: bisacodyL 10 MG SUPP PR PRN (18:24)
[2024-10-14] MEDS ORDERED: METOCLOPRAMIDE HCL INJ 5 MG/ML 2 ML VIAL IV PRN (18:24)
[2024-10-14] MEDS: LR 15ML/HR IV SCH (18:43)
--- NOTE | 2024-10-14 18:59 | Anesthesiology Progress Note ---
Date of Service October 14, 2024 Anesthesia Post Procedure Vital Signs Vital Signs: Temp Pulse Pulse Resp BP Pulse Ox O2 Del Method 10/14/24 18:37 36.6 C 75 16 127/79 94 Nasal Cannula 10/14/24 18:10 36.8 C 80 16 133/75 97 Nasal Cannula 10/14/24 17:55 68 14 135/75 95 Room Air 10/14/24 17:45 36.7 C 69 16 128/76 96 Room Air 10/14/24 17:35 73 16 137/78 97 Room Air 10/14/24 17:25 79 16 132/77 96 Room Air 10/14/24 17:15 78 16 128/79 99 Oxymask 10/14/24 17:05 77 18 149/87 H 99 Oxymask 10/14/24 16:55 36.4 C L 75 16 121/70 100 Oxymask 10/14/24 09:50 36.6 C 68 20 146/103 H 98 Room Air O2 Flow Rate 10/14/24 18:37 2 10/14/24 18:10 2 10/14/24 17:55 10/14/24 17:45 10/14/24 17:35 10/14/24 17:25 10/14/24 17:15 4 10/14/24 17:05 6 10/14/24 16:55 6 10/14/24 09:50 Pain Intensity Right Shoulder: Pain Intensity: 5 Transfer of Care Handoff Completed per policy Notes Mental Status: alert / awake / arousable and participated in evaluation Patient Amnestic to Procedure: Yes Nausea / Vomiting: adequately controlled Pain: adequately controlled Airway Patency, RR, SpO2: stable & adequate BP & HR: stable & adequate Hydration State: stable & adequate Anesthetic Complications: no major complications apparent
--- NOTE | 2024-10-14 20:13 | Consultation ---
Date of Consultation October 14, 2024 Assessment & Plan (1) Hypertension: 49-year-old male with past medical history significant for hypertension, acute right-sided low back pain, migraine without aura, anxiety is status post right shoulder arthroplasty. Has some soreness at surgical site. Afebrile. Denies any headache. Has some blurred vision. No runny nose. No cough. No nausea. Eating okay. No abdominal pain currently. No feeling of hot or cold. Hemodynamics are okay. Status post right shoulder arthroplasty Management as per orthopedics Hypertension Continue losartan Will monitor Anxiety On Zoloft DVT prophylaxis and disposition as per orthopedics History of Present Illness Reason for Consultation: Status post right shoulder arthroplasty Attending Physician: Ismael Myers MD History of Present Illness 49-year-old male with past medical history significant for hypertension, acute right-sided low back pain, migraine without aura, anxiety is status post right shoulder arthroplasty. Has some soreness at surgical site. Afebrile. Denies any headache. Has some blurred vision. No runny nose. No cough. No nausea. Eating okay. No abdominal pain currently. No feeling of hot or cold. Hemodynamics are okay. Past med history. As mentioned above Past surgical history. Left shoulder arthroplasty. Appendectomy. Family history. Maternal grandmother had cancer. Stroke. Uncle had lung cancer. Mother has fibromyalgia. Hypertension. Father has hypertension. Social history. . . Alcohol occasional. Allergies Allergy/AdvReac Type Severity Reaction Status Date / Time No Known Allergies Allergy Unknown Verified 10/14/24 09:51 Home Medications Medication Instructions Recorded Confirmed Type losartan 50 mg tablet 50 mg PO QAM #30 tabs 06/16/19 10/14/24 Rx sertraline 100 mg tablet 100 mg PO QPM 06/16/19 10/14/24 History sumatriptan succinate 50 mg tablet 50 mg PO UD PRN Migraine Headache 06/16/19 10/14/24 History ergocalciferol (vitamin D2) 1,250 1,250 mcg PO WK 08/02/24 10/14/24 History mcg (50,000 unit) capsule (Vitamin D2) minocycline 100 mg capsule 100 mg PO BID 08/02/24 10/14/24 History cyclobenzaprine 5 mg tablet 5 - 10 mg PO Q8H PRN prn 09/09/24 10/14/24 History gabapentin 100 mg capsule 100 mg PO TID 09/09/24 10/14/24 History hydrocodone 5 mg-acetaminophen 500 1 tab PO Q6H PRN Pain 09/09/24 10/14/24 History mg tablet acetaminophen 500 mg tablet 500 mg PO Q8H fever or pain #90 10/14/24 Rx (Tylenol Extra Strength) tabs aspirin 325 mg tablet,delayed 325 mg PO DAILY #30 tabs 10/14/24 Rx release cefadroxil 500 mg capsule 500 mg PO Q12H #28 caps 10/14/24 Rx celecoxib 200 mg capsule (Celebrex) 200 mg PO BID #60 caps 10/14/24 Rx oxycodone 5 mg tablet 5 mg PO Q4H PRN pain #20 tabs 10/14/24 Rx Patient History Medical History History of left bundle branch block (LBBB) Rate-related LBBB noted on 2019 Exercise stress echo Depression Degenerative disc disease, lumbar Migraines Hypertension Surgical History History of appendectomy History of repair of rotator cuff left Social History Smoking Status: Current every day smoker Tobacco Type: E-cigarettes / Vaping Second Hand Exposure: No; Do You Dip or Chew Tobacco: No; Tobacco Cessation Education Requested by Patient: No Hx Alcohol Use: Yes Alcohol type: beer Hx Substance Use: No Preferred Language: Icelandic Geography Professor Required: No Beliefs That Will Affect Care: None Current Living Situation: Spouse Other Information That Helps Us Care for You: No Feels Safe at Home: Yes Safety Concerns: Feels Safe At This Time Assistive Devices: None Review of Systems Review of Systems: All systems reviewed & are unremarkable except as noted in HPI & below Physical Exam Physical Exam: General- Not in distress Head- atraumatic Neck- supple, no JVD. Lungs- clear to auscultation no wheezing or crackles. Heart- regular rate and rhythm; no murmur, no gallop. Abdomen- normal bowel sounds, soft, nontender, no distension. Extremities- no pretibial edema, no erythema seen. Right shoulder in sling Neuro- alert, oriented no facial palsy; no dysarthria; moves extremities except right upper extremity Results & Data Vital Signs (Past 12 Hours) Vital Signs Temp Pulse Pulse Resp BP Pulse Ox O2 Del Method 10/14/24 19:23 36.6 C 95 H 18 136/89 98 Room Air 10/14/24 18:37 36.6 C 75 16 127/79 94 Nasal Cannula 10/14/24 18:10 36.8 C 80 16 133/75 97 Nasal Cannula 10/14/24 17:55 68 14 135/75 95 Room Air 10/14/24 17:45 36.7 C 69 16 128/76 96 Room Air 10/14/24 17:35 73 16 137/78 97 Room Air 10/14/24 17:25 79 16 132/77 96 Room Air 10/14/24 17:15 78 16 128/79 99 Oxymask 10/14/24 17:05 77 18 149/87 H 99 Oxymask 10/14/24 16:55 36.4 C L 75 16 121/70 100 Oxymask 10/14/24 09:50 36.6 C 68 20 146/103 H 98 Room Air O2 Flow Rate 10/14/24 19:23 10/14/24 18:37 2 10/14/24 18:10 2 10/14/24 17:55 10/14/24 17:45 10/14/24 17:35 10/14/24 17:25 10/14/24 17:15 4 10/14/24 17:05 6 10/14/24 16:55 6 10/14/24 09:50 Diagnostic Findings Impressions Shoulder X-Ray 10/14/24 14:13 EXAM: Radiographs of the Right Shoulder Complete 2 or More Views INDICATION: Shoulder surgery. TECHNIQUE: Two or more views of the right shoulder. COMPARISON: No relevant prior studies available. FINDINGS: Bones/joints: Normally located metallic device replaced in the humeral head. No dislocation or fracture. Visualized right ribs intact. Soft tissues: Expected postoperative gas and swelling in the operative bed. Drains present. Lungs and pleural spaces: Visualized right lung clear. IMPRESSION: Satisfactory appearance of right humeral resurface. ACT 112: Negative or not required by law. Electronically signed by Rachel Bautista 10-14-2024 5:43 PM
[2024-10-14] MEDS: TRANEXAMIC ACID / 0.7% NACL 1,000 MG/100 ML BAG IV SCH (20:21)
[2024-10-14] MEDS: DOCUSATE SODIUM 100 MG CAP PO SCH (20:45)
[2024-10-14] MEDS: MINOCYCLINE HCL 50 MG CAP PO SCH (20:45)
[2024-10-14] MEDS: SERTRALINE HCL 100 MG TABLET PO SCH (20:45)
[2024-10-14] MEDS: SENNA 8.6 MG TAB PO SCH (20:45)
[2024-10-14] MEDS: GABAPENTIN 100 MG CAP PO SCH (20:45)
[2024-10-14] MEDS: oxyCODONE HCL IR 5 MG TAB (IMMEDIATE RELEASE) PO PRN (23:44)
[2024-10-15] MEDS: KETOROLAC TROMETHAMINE 15 MG/ML VIAL IV PRN (00:39)
[2024-10-15 05:16] VITALS: RESP 16
[2024-10-15 06:23] LABS: Basophils # (auto) 0.02 K/uL (0.00-0.20); Basophils % (auto) 0.2 %; Eosinophils # (auto) 0.02 K/uL (0.00-0.50); Eosinophils % (auto) 0.2 %; Hematocrit (blood only) 40.2 % (42.0-52.0); Hemoglobin 13.7 g/dl (14.0-18.0); Immature Granulocytes # (auto) 0.04 K/uL (0.01-0.20); Immature Granulocytes % (auto) 0.4 %; Lymphocytes # (auto) 1.23 K/uL (1.20-3.40); Lymphocytes % (auto) 11.8 %; Mean Corpuscular Hemoglobin 30.9 pg (25.0-34.0); Mean Corpuscular Hgb Conc 34.1 g/dL (32.0-36.0); Mean Corpuscular Volume 90.5 fL (80.0-100.0); Mean Platelet Volume 10.9 fL (9.4-12.4); Monocytes # (auto) 0.75 K/uL (0.11-0.59); Monocytes % (auto) 7.2 %; Neutrophils # (auto) 8.34 K/uL (1.40-6.50); Neutrophils % (auto) 80.2 %; Platelet Count 231 K/uL (130-400); RDW Coefficient of Variation 12.5 % (11.5-14.5); RDW Standard Deviation 41.1 fL (36.4-46.3); Red Blood Count 4.44 M/uL (4.70-6.10)
[2024-10-15 06:41] LABS: BUN Creatinine Ratio 18.1 (10-20); Creatinine Clr Calc Pharmacy 98.8 ml/min; Potassium 3.9 mmol/L (3.5-5.1)
[2024-10-15 07:17] VITALS: BP 131/73; PULSE 63; TEMP 98.1; O2SAT 96
[2024-10-15] MEDS: dexAMETHasone 10 MG in SYRINGE 0 ML IV SCH (07:27)
--- NOTE | 2024-10-15 08:03 | Hospitalist Progress Note ---
Date of Service October 15, 2024 Assessment & Plan (1) Osteoarthritis of right glenohumeral joint: (2) Hypertension: Plan: 49-year-old male with past medical history significant for hypertension, acute right-sided low back pain, migraine without aura, anxiety is status post right shoulder arthroplasty. Has some soreness at surgical site. Afebrile. Denies any fever, chills, chest pain, shortness of breath, abd. pain, n/v Status post right shoulder arthroplasty Management as per orthopedics Hypertension Continue losartan monitor BP, cont. to follow up as outpt Anxiety On Zoloft DVT prophylaxis and disposition as per orthopedics Admission and Anticipated Discharge Date Admission Date: October 14, 2024 Subjective Pt seen in follow up of med consult s/p right shoulder arthroplasty Currently sitting up in bed in [facility], pt's present at the bedside Pt is wearing a sling , R arm in dressings He is awake, alert, oriented, says he is feeling well. No fever, chills, chest pain, shortness of breath, abd. pain, n/v He is eating, voiding, passing flatus Review of Systems Review of Systems: All systems reviewed & are unremarkable except as noted in Subjective Physical Exam Physical Exam: General- WD/ WN M in NAD Head- atraumatic Neck- supple, no JVD. Lungs- clear to auscultation no wheezing or crackles. Heart- regular rate and rhythm; no murmur, no gallop. Abdomen- normal bowel sounds, soft, nontender, no distension. Extremities- no pretibial edema, no erythema seen. Right shoulder in sling Neuro- alert, oriented no facial palsy; no dysarthria; moves extremities except right upper extremity Results & Data Results & Data Vital Signs (Past 12 Hours) Vital Signs Temp Pulse Resp BP Pulse Ox O2 Del Method 10/15/24 07:16 36.7 C 63 16 131/73 96 Room Air 10/15/24 05:15 36.5 C 66 16 122/72 97 Room Air 10/14/24 22:23 36.6 C 85 18 131/81 96 Room Air 10/14/24 20:25 36.7 C 86 18 129/79 98 Room Air Laboratory Results 10/15/24 Range/Units 05:46 WBC 10.40 (4.8-10.8) K/ul RBC 4.44 L (4.70-6.10) M/uL Hgb 13.7 L (14.0-18.0) g/dl Hct 40.2 L (42.0-52.0) % MCV 90.5 (80.0-100.0) fL MCH 30.9 (25.0-34.0) pg MCHC 34.1 (32.0-36.0) g/dL RDW Std Deviation 41.1 (36.4-46.3) fL RDW Coeff of Gurinder 12.5 (11.5-14.5) % Plt Count 231 (130-400) K/uL MPV 10.9 (9.4-12.4) fL Immature Gran % (Auto) 0.4 % Neut % (Auto) 80.2 % Lymph % (Auto) 11.8 % Bradford % (Auto) 7.2 % Eos % (Auto) 0.2 % Baso % (Auto) 0.2 % Neut # (Auto) 8.34 H (1.40-6.50) K/uL Lymph # (Auto) 1.23 (1.20-3.40) K/uL Bradford # (Auto) 0.75 H (0.11-0.59) K/uL Eos # (Auto) 0.02 (0.00-0.50) K/uL Baso # (Auto) 0.02 (0.00-0.20) K/uL Immature Gran # (Auto) 0.04 (0.01-0.20) K/uL Sodium 137 (136-145) mmol/L Potassium 3.9 (3.5-5.1) mmol/L Chloride 105 (98-107) mmol/L Carbon Dioxide 22 (21-32) mmol/L Anion Gap 10 (3-11) BUN 19 (6-23) mg/dl Creatinine 1.05 (0.6-1.4) mg/dl Est Cr Clr Drug Dosing 98.8 ml/min eGFR 87.02 BUN/Creatinine Ratio 18.1 (10-20) Glucose 100 H (70-99(Fasting)) mg/dl Calcium 9.0 (8.6-10.3) mg/dl Medications Administered Current Inpatient Medications Acetaminophen (Acetaminophen 500 Mg Tab) 1,000 mg PO Q8 KEANU Stop: 11/13/24 21:59 Last Admin: 10/15/24 05:22 Dose: 1,000 mg Al Hydrox/Mg Hydrox/Simethicone (Aluminum/Magnesium Susp 30 Ml Udc) 15 ml PO Q4H PRN PRN Reason: Heartburn Stop: 11/13/24 18:23 Aspirin (Aspirin 325 Mg Ectab) 325 mg PO DAILY [facility] Stop: 11/14/24 08:59 Bisacodyl (Bisacodyl 10 Mg Supp) 10 mg MI DAILY PRN PRN Reason: Constipation Stop: 11/13/24 18:23 Celecoxib (Celebrex 200 Mg Cap) 200 mg PO BID KEANU Stop: 11/14/24 20:59 Diphenhydramine HCl (Diphenhydramine Capsule 25 Mg Cap) 25 mg PO Q8H PRN PRN Reason: Itching Stop: 11/13/24 18:23 Docusate Sodium (Docusate Sodium 100 Mg Cap) 100 mg PO BID [facility] Stop: 11/13/24 20:59 Last Admin: 10/14/24 20:45 Dose: 100 mg Ergocalciferol (Ergocalciferol 1250 Mcg (50,000 Units) Cap) 1,250 mcg PO Mo@0900 [facility] Stop: 11/18/24 08:59 Gabapentin (Gabapentin 100 Mg Cap) 100 mg PO TID [facility] Stop: 11/13/24 20:59 Last Admin: 10/14/24 20:45 Dose: 100 mg Hydromorphone HCl (Hydromorphone Inj 0.5 Mg/0.5 Ml Syr) 0.5 mg IV Q4H PRN PRN Reason: Pain or Pre PT Stop: 10/28/24 18:23 Ketorolac Tromethamine (Ketorolac Tromethamine 15 Mg/Ml Vial) 15 mg IV Q4H PRN PRN Reason: Breakthrough Pain Stop: 10/15/24 16:00 Last Admin: 10/15/24 07:27 Dose: 15 mg Losartan Potassium (Losartan Potassium 50 Mg Tab) 50 mg PO QAM [facility] Stop: 11/14/24 08:59 Magnesium Hydroxide (Magnesium Hydroxide Susp 30 Ml Udc) 30 ml PO Q6H PRN PRN Reason: Constipation Stop: 11/13/24 18:23 Metoclopramide HCl (Metoclopramide Hcl Inj 5 Mg/Ml 2 Ml Vial) 10 mg IV Q6H PRN PRN Reason: Nausea And Vomiting Stop: 11/13/24 18:23 Minocycline HCl (Minocycline Hcl 50 Mg Cap) 100 mg PO BID [facility] Stop: 11/13/24 20:59 Last Admin: 10/14/24 20:45 Dose: 100 mg Multivitamins (Multivitamin Tab) 1 tab PO QAM [facility]ANU Stop: 11/14/24 08:59 Naloxone HCl (Naloxone Hcl 0.4 Mg/1 Ml Vial/Carp) 0.1 mg IV Q5M PRN PRN Reason: Oversedation/Resp Depression Stop: 11/13/24 18:23 Ondansetron HCl (Ondansetron Inj 2 Mg/Ml 2 Ml Vial) 4 mg IV Q6H PRN PRN Reason: Nausea And Vomiting Stop: 11/13/24 18:23 Oxycodone HCl (Oxycodone Hcl Ir 5 Mg Tab (Immediate Release)) 5 - 10 mg PO Q4H PRN PRN Reason: Pain or Pre PT Stop: 10/28/24 18:23 Last Admin: 10/15/24 05:58 Dose: 10 mg Sennosides (Senna 8.6 Mg Tab) 17.2 mg PO HS [facility] Stop: 11/13/24 20:59 Last Admin: 10/14/24 20:45 Dose: 17.2 mg Sertraline HCl (Sertraline Hcl 100 Mg Tablet) 100 mg PO QPM [facility] Stop: 11/13/24 20:59 Last Admin: 10/14/24 20:45 Dose: 100 mg Sumatriptan Succinate (Sumatriptan Succinate 50 Mg Tab) 50 mg PO Q2H PRN PRN Reason: Migraine Headache Stop: 11/13/24 18:23 Tamsulosin HCl (Tamsulosin Hcl 0.4 Mg Cap) 0.4 mg PO QAM PRN PRN Reason: UNABLE to void Stop: 11/13/24 18:23
[2024-10-15] MEDS: LOSARTAN POTASSIUM 50 MG TAB PO SCH (08:10)
[2024-10-15] MEDS: ASPIRIN 325 MG ECTAB PO SCH (08:10)
[2024-10-15] MEDS: MULTIVITAMIN TAB PO SCH (08:11)
--- NOTE | 2024-10-15 08:14 | Orthopedic Progress Note ---
Date of Service October 15, 2024 Assessment & Plan (1) Osteoarthritis of right glenohumeral joint: Plan: End-stage right glenohumeral osteoarthritis. Plan is to proceed with a stemless total shoulder replacement using OVO motion Arthrosurface total shoulder rep lacement with inlay glenoid component. removed loose body and biceps sheath and reinforced biceps tendon with tenodesis to pectoralis tendon. Will discharge home today and set up for outpatient physical therapy. Patient will follow-up in 2 weeks for staple removal. (2) Biceps rupture, proximal: Admission and Anticipated Discharge Date Admission Date: October 14, 2024 Subjective Starting to get some mild pain but tolerable. Feels well otherwise. Review of Systems Review of Systems: Noncontributory Physical Exam 2 Musculoskeletal: Distal circulation sensorimotor exam intact. Dressing intact. Results & Data Vital Signs (Past 12 Hours) Vital Signs Temp Pulse Resp BP Pulse Ox O2 Del Method 10/15/24 07:16 36.7 C 63 16 131/73 96 Room Air 10/15/24 05:15 36.5 C 66 16 122/72 97 Room Air 10/14/24 22:23 36.6 C 85 18 131/81 96 Room Air 10/14/24 20:25 36.7 C 86 18 129/79 98 Room Air (2) Biceps rupture, proximal Encounter type: sequela Laterality: right Qualified Code(s): S46.211S - Strain of muscle, fascia and tendon of other parts of biceps, right arm, sequela
[2024-10-15] MEDS ORDERED: CeleBREX 200 MG CAP PO SCH (21:00)
[2024-10-19] MEDS ORDERED: ERGOCALCIFEROL 1250 MCG (50,000 UNITS) CAP PO SCH (09:00)
== END 2024-10-15 11:48 | disposition home or self-care (01) ==
LOC: ASU 09:03 → 3E 09:03